=== PATIENT | female | born 1965 | race Caucasian/White ===

== ENCOUNTER → 2017-04-10 | Outpatient (CLI) | payer MEDICARE ==
--- NOTE | 2017-04-15 14:07 | MM ---
Reason for exam: screening (asymptomatic). Last mammogram was performed 3 years and 4 months ago. History: Took hormonal contraceptives for 3 months beginning at age 44. Physical Findings: A clinical breast exam by your physician is recommended on an annual basis and results should be correlated with mammographic findings. MG 3D Screening Mammo W/Cad Bilateral CC and MLO view(s) were taken. Prior study comparison: December 23, 2013, bilateral digital screening mammo w/CAD. December 22, 2012, bilateral digital screening mammo w/CAD. The breast tissue is heterogeneously dense. This may lower the sensitivity of mammography. There is no discrete abnormality. ASSESSMENT: Negative, BI-RAD 1 RECOMMENDATION: Routine screening mammogram of both breasts in 1 year.
== END | disposition home or self-care (01) ==
LOC: RADMAMWWP 13:59
PROVIDERS: ATTEND Family Medicine
DX: Z12.31 Encounter for screening mammogram for malignant neoplasm of breast (principal)
CPT/HCPCS: 77063; G0202

== ENCOUNTER → 2019-03-22 | Outpatient (CLI) | payer MEDICARE ==
--- NOTE | 2019-03-22 13:10 | US ---
EXAMINATION TYPE: US pelvis complete transvag DATE OF EXAM: 03/22/2019 COMPARISON: NONE CLINICAL HISTORY: N95.0 Postmenopausal bleeding, R10.12 Left upper. TECHNIQUE: . Transabdominal sonographic images of the pelvis were acquired. Transvaginal sonographi c images were medically necessary to better assess the following anatomy: Uterus Date of LMP: Patient states LMP 2 years ago, episode of bleeding February 15, 2019 EXAM MEASUREMENTS: Uterus: 6.0 x 3.3 x 3.5 cm Endometrial Stripe: 0.3 cm Right Ovary: 1.8 x 1.2 x 1.5 cm Left Ovary: 3.0 x 2.1 x 1.9 cm 1. Uterus: Anteverted Heterogeneous 2. Endometrium: wnl 3. Right Ovary: wnl 4. Left Ovary: wnl 5. Bilateral Adnexa: wnl 6. Posterior cul-de-sac: wnl IMPRESSION: No discrete abnormality appreciated at this time.
--- NOTE | 2019-03-22 13:21 | US ---
EXAMINATION TYPE: US abdomen complete DATE OF EXAM: 03/22/2019 COMPARISON: NONE CLINICAL HISTORY: N95.0 Postmenopausal bleeding, R10.12 Left upper. EXAM MEASUREMENTS: Liver Length: 12.9 cm Gallbladder Wall: 0.2 cm CBD: 0.6 cm Spleen: 9.8 cm Right Kidney: 9.9 x 3.9 x 4.0 cm Left Kidney: 9.1 x 5.3 x 4.8 cm Pancreas: Obscured by bowel gas Liver: Heterogeneous Gallbladder: wnl Evidence for sonographic Hook's sign: No CBD: Measuring upper limits of normal Spleen: wnl Right Kidney: No hydronephrosis. Echogenic foci visualized measuring 0.5 cm Left Kidney: No hydronephrosis or masses seen Upper IVC: wnl Abd Aorta: wnl The intrahepatic portion of the IVC and proximal abdominal aorta are within normal limits. There is no evidence of cholelithiasis. Common bile duct is unremarkable. The visualized portions of the pa ncreas are homogenous. The spleen is unremarkable. No renal lesions are seen. IMPRESSION: 1. Fatty liver. 2. Small nonobstructing right-sided nephrolithiasis.
--- NOTE | 2019-03-23 14:25 | MM ---
Reason for exam: screening (asymptomatic). Last mammogram was performed 1 year and 11 months ago. History: Took hormonal contraceptives for 3 months beginning at age 44. Physical Findings: A clinical breast exam by your physician is recommended on an annual basis and results should be correlated with mammographic findings. MG 3D Screening Mammo W/Cad Bilateral CC and MLO view(s) were taken. Prior study comparison: April 10, 2017, bilateral MG 3d screening mammo w/cad. December 23, 2013, bilateral digital screening mammo w/CAD. The breast tissue is heterogeneously dense. This may lower the sensitivity of mammography. Focal asymmetry on left CC disperses on repeat CC. No significant changes when compared with prior studies. ASSESSMENT: Benign, BI-RAD 2 RECOMMENDATION: Routine screening mammogram of both breasts in 1 year.
== END | disposition home or self-care (01) ==
LOC: RADMAMWWP 11:45
PROVIDERS: ATTEND Family Medicine
DX: Z12.31 Encounter for screening mammogram for malignant neoplasm of breast (principal); N95.0 Postmenopausal bleeding; R10.12 Left upper quadrant pain; K76.0 Fatty (change of) liver, not elsewhere classified; N20.0 Calculus of kidney
CPT/HCPCS: 76700; 76830; 76856; 77063; 77067

== ENCOUNTER → 2020-09-14 | Outpatient (CLI) | payer MEDICARE ==
--- NOTE | 2020-09-15 15:04 | MM ---
Reason for exam: screening (asymptomatic). Last mammogram was performed 1 year and 6 months ago. History: Patient is postmenopausal. Took hormonal contraceptives for 3 months beginning at age 44. Physical Findings: A clinical breast exam by your physician is recommended on an annual basis and results should be correlated with mammographic findings. MG 3D Screening Mammo W/Cad Bilateral CC and MLO view(s) were taken. Prior study comparison: March 22, 2019, bilateral MG 3d screening mammo w/cad. April 10, 2017, bilateral MG 3d screening mammo w/cad. The breast tissue is heterogeneously dense. This may lower the sensitivity of mammography. There is no discrete abnormality. ASSESSMENT: Negative, BI-RAD 1 RECOMMENDATION: Routine screening mammogram of both breasts in 1 year.
== END | disposition home or self-care (01) ==
LOC: RADMAMWWP 10:47
PROVIDERS: ATTEND Physician Assistant Medical
DX: Z12.31 Encounter for screening mammogram for malignant neoplasm of breast (principal)
CPT/HCPCS: 77063; 77067

== ENCOUNTER → 2020-09-15 | Outpatient (CLI) | payer MEDICARE ==
--- NOTE | 2020-09-15 13:12 | MR ---
EXAMINATION TYPE: MR shoulder LT wo con DATE OF EXAM: 09/15/2020 COMPARISON: None HISTORY: Pain L shoulder TECHNIQUE: Multiplanar, multisequence imaging of the left shoulder is performed without contrast. FINDINGS: Rotator Cuff: There is abnormal thickening, increased intrinsic signal suggestive of tendinosis, rota tor cuff is intact Acromioclavicular Joint: There are arthropathy changes present with some mild mass effect on the musc ulotendinous junction of supraspinatus Glenohumeral Joint: Intact Labrum: The labrum appears grossly intact given limitation of non-arthrogram study. Biceps Tendon: The long head of biceps is in normal location within bicipital groove. Small amount of fluid present along the tendon Bone marrow signal: Pseudocysts are present within the humeral head Other: Some fluid signal present in the subacromial subdeltoid bursa region. IMPRESSION: Correlate for impingement, tendinosis of the rotator cuff is suspected.
== END | disposition home or self-care (01) ==
LOC: RADMRIMAIN 09:43
PROVIDERS: ATTEND Physician Assistant Medical
DX: M25.512 Pain in left shoulder (principal); M79.622 Pain in left upper arm; M14.812 Arthropathies in other specified diseases classified elsewhere, left shoulder

== ENCOUNTER → 2025-03-17 | Outpatient (CLI) | payer MEDICARE ==
--- NOTE | 2025-03-17 13:41 | BD ---
EXAMINATION TYPE: Axial Bone Density DATE OF EXAM: 03/17/2025 CLINICAL HISTORY: 60 years old Female. ICD-10 CODE: Z78.0 MENOPAUSAL , Additional History: Height: 61 Weight: 130 FRAX RISK QUESTIONS: Secondary Osteoporosis: RISK FACTORS HISTORY OF: MEDICATIONS: EXAM MEASUREMENTS: Bone mineral densitometry was performed using the [employer] System. Bone mineral density as measured about the Lumbar spine is: ----- L1-L4(G/cm2): 1.118 T Score Values are as follows: ----- L1: -0.5 ----- L2: -0.5 ----- L3: -0.3 ----- L4: -0.9 ----- L1-L4: -0.5 Z Score Values are as follows: ----- L1: 0.8 ----- L2: 0.9 ----- L3: 1.0 ----- L4: 0.4 ----- L1-L4: 0.8 First dexa at [facility] Bone mineral density about the R hip (g/cm2): 0.809 Bone mineral density about the L hip (g/cm2): 0.843 T Score values are as follows: -----R Neck: -2.4 -----L Neck: -2.3 -----R Total: -1.6 -----L Total: -1.3 Z Score values are as follows: -----R Neck: -1.1 -----L Neck: -1.0 -----R Total: -0.6 -----L Total: -0.3 First dexa at [facility] FRAX%s: The graph provided illustrates a 11.0% chance for a major osteoporotic fx and a 2.0% chance f or the hips probability for fx in 10 years time. IMPRESSION: Osteopenia (T Score between -2.5 and -1). There is slightly increased risk of fracture and the patient may be considered for treatment. Re-Screen 2-5 years. NOTE: T-SCORE=SD OF THE YOUNG ADULT MEAN. [facility], , 03/17/2025 1:39 PM
--- NOTE | 2025-03-17 14:19 | MM ---
Reason for Exam: Screening (asymptomatic). Last mammogram was performed 1 year(s) and 8 month(s) ago. Patient History: Menarche at age 11. First Full-Term at age 23. Postmenopausal. Hormonal Contraceptives for 3 months starting at age 44. Risk Values: Georgie 5 year model risk: 1.4%. NCI Lifetime model risk: 7.4%. Prior Study Comparison: 03/22/2019 Bilateral Screening Mammogram, [facility]. 09/14/2020 Bilateral Screening Mammogram, [facility]. 08/12/2023 Bilateral MG 3D screening mammo w/cad, [facility]. Tissue Density: The breasts are heterogeneously dense, which may obscure small masses. Findings: Analyzed By CAD. Benign-appearing bilateral axillary lymph nodes are seen. There is no suspicious group of microcalcifications or new suspicious mass in either breast. Overall Assessment: Negative, BI-RAD 1 Management: Screening Mammogram of both breasts in 1 year. . Patient should continue monthly self-breast exams. A clinical breast exam by your physician is recommended on an annual basis. This exam should not preclude additional follow-up of suspicious palpable abnormalities. Note on Georgie scores and lifetime risk: 1. A Georgie score greater than 3% is considered moderate risk. If this is the case, consider specialist referral to assess eligibility for a risk reducing agent. 2. If overall lifetime risk for the development of breast cancer is 20% or higher, the patient may qualify for future screening with alternating mammogram and breast MRI. [facility], , 03/17/2025 2:16 PM. Electronically signed and approved by: Edinson Marinelli M.D.
== END | disposition home or self-care (01) ==
LOC: RADBDWWP 13:05
PROVIDERS: ATTEND Family Medicine
DX: Z12.31 Encounter for screening mammogram for malignant neoplasm of breast (principal); R92.333 Mammographic heterogeneous density, bilateral breasts; M85.89 Other specified disorders of bone density and structure, multiple sites; Z78.0 Asymptomatic menopausal state; Z92.0 Personal history of contraception
CPT/HCPCS: 77063; 77067; 77080